=== PATIENT | female | born 1995 | race African-American/Black ===

== ENCOUNTER 2020-09-03 12:47 | Outpatient (CLI) | payer OTHER ==
[2020-09-04 02:10] LABS: SARS-CoV-2 PCR by NAA Not Detected (NotDetected)
== END 2020-09-03 12:48 | disposition home or self-care (01) ==
LOC: CSHLAB 12:47
PROVIDERS: ATTEND Family Medicine
DX: Z20.822 Contact with and (suspected) exposure to COVID-19 (principal)
CPT/HCPCS: 87635; U0003; U0005

== ENCOUNTER 2020-09-06 05:33 | Inpatient (IN) | payer OTHER ==
[~2020-09-06 05:33] MED LIST: NS w/ Oxytocin 30 units 500 ML IV PRN; NS w/ Oxytocin 30 units 500 ML IVPB SCH
[2020-09-06] MEDS ORDERED: Promethazine HCl 25 MG/ML VIAL IM PRN ×2 (05:34→08:42)
[2020-09-06] MEDS ORDERED: NS / Oxytocin 40 units/1000ml 1,000 ML IV PRN (05:34)
[2020-09-06] MEDS ORDERED: Lidocaine 1% (PF) 30 ML VIAL SC PRN (05:34)
[2020-09-06] MEDS ORDERED: Ondansetron PF 4 MG/2 ML Vial IVP PRN ×3 (05:34→14:30)
[2020-09-06] MEDS ORDERED: Ibuprofen 800 MG TAB PO PRN (05:34)
[2020-09-06] MEDS ORDERED: Diphenoxylate HCl/Atropine Tablet PO PRN (05:34)
[2020-09-06] MEDS ORDERED: Misoprostol 200 MCG TAB PR PRN (05:34)
[2020-09-06] MEDS ORDERED: Butorphanol Tartrate 1 MG/ML VIAL SLOW IVP PRN (05:34)
[2020-09-06] MEDS ORDERED: hydrALAZINE 20 MG/ML VIAL SLOW IVP PRN ×2 (05:34→14:30)
[2020-09-06] MEDS ORDERED: Carboprost 250 MCG/ML AMP IM PRN (05:34)
[2020-09-06] MEDS ORDERED: HYDROcodone/Acetaminophen 5/325 mg Tablet PO PRN ×3 (05:34→14:30)
[2020-09-06] MEDS ORDERED: Methylergonovine 0.2 MG/ML VIAL IM PRN (05:34)
[2020-09-06] MEDS ORDERED: Penicillin G Potassium 5 MILL.UNITS in Sodium Chloride 0.9% 100 ML IVPB SCH (05:45)
[2020-09-06] MEDS: Lactated Ringer's 1,000 ML IV SCH ×2 (06:18→19:30)
[2020-09-06] MEDS ORDERED: NS w/ Oxytocin 30 units 500 ML ONE ×2 (06:23→13:09)
[2020-09-06 06:49] VITALS: BMI 27.4
[2020-09-06 06:52] LABS: Mean Corpuscular HGB CONC 31.3 g/dL (32.0-36.0); Mean Corpuscular Hemoglobin 25.3 pg (27.0-33.0); Mean Platelet Volume 10.7 fl (7.4-10.4); Platelet Count 208 10x3/uL (150-450); RBC Distribution Width 15.2 % (11.5-14.5); Red Blood Cell (RBC) Count 3.95 10x6/uL (3.90-5.03); White Blood Cell (WBC) Count 7.1 10x3/uL (3.5-10.5)
[2020-09-06 07:24] LABS: Hep B Surf Ag Non-Reactive S/CO (NonReactive)
[2020-09-06 07:25] LABS: Syphilis Antibody Nonreactive (Nonreactive); Syphilis Antibody Index 0.03 S/CO (<1.00 Non-Reactive)
[2020-09-06] MEDS ORDERED: Fentanyl 4 mcg/Bup 0.1% Cadd 100 ML ONE (07:32)
[2020-09-06 07:33] LABS: HBSAg Index 0.19 S/CO (0-0.99)
[2020-09-06] MEDS ORDERED: Bupivacaine 0.25% HCL 30 ML VIAL ONE (08:00)
[2020-09-06] MEDS ORDERED: Naloxone HCl 0.4 mg/ml Vial IVP PRN ×2 (08:42)
[2020-09-06] MEDS ORDERED: diphenhydrAMINE 50 MG/ML VIAL IVP PRN (08:42)
[2020-09-06] MEDS ORDERED: Eucerin (Mineral Oil/Petrolatum,White) 30 gm Jar TOP PRN (08:42)
[2020-09-06] MEDS ORDERED: Acetaminophen 325 MG TAB PO PRN (08:42)
[2020-09-06] MEDS ORDERED: Lactated Ringer's 500 ML IV PRN (08:42)
[2020-09-06] MEDS ORDERED: Communication Order-Pharmacy FS SCH (08:45)
[2020-09-06] MEDS ORDERED: Fentanyl 4 mcg/Bupivacaine 0.1% Cassette 100 ML EPIDURAL SCH (08:45)
[2020-09-06] MEDS ORDERED: ePHEDrine Sulfate 50 MG/10 ML VIAL SLOW IVP PRN (08:49)
[2020-09-06] MEDS: Penicillin G 2.5 MILL.units 2.5 MILL.UNITS in Premix Bag 1 BAG IVPB SCH ×2 (10:33→19:30)
[2020-09-06] MEDS ORDERED: NS w/ Oxytocin 30 units 500 ML IVPB SCH ×3 (13:30→14:45)
[2020-09-06] MEDS ORDERED: Adacel (T-DAP) 0.5 ML SYRINGE IM ONE (14:30)
[2020-09-06] MEDS ORDERED: Benzocaine-Menthol 82.5 ML CAN TOP PRN (14:30)
[2020-09-06] MEDS ORDERED: Bisacodyl 10 MG SUPP PR PRN (14:30)
[2020-09-06] MEDS ORDERED: Milk Of Magnesia 30 ML UDCUP PO PRN (14:30)
[2020-09-06] MEDS ORDERED: Lanolin Ointment 7 GM TUBE TOP PRN (14:30)
[2020-09-06] MEDS ORDERED: diphenhydrAMINE 25 MG CAP PO PRN (14:30)
[2020-09-06] MEDS ORDERED: Ibuprofen 800 MG TAB PO SCH (15:00)
[2020-09-06] MEDS: Ferrous Sulfate 325 MG TAB PO SCH (19:29)
[2020-09-06] MEDS: Docusate Calcium (SURFAK) 240 MG CAP PO SCH (20:54)
[2020-09-06] MEDS: Ibuprofen 800 MG TAB PO SCH (21:00)
[2020-09-07] MEDS: Ibuprofen 800 MG TAB PO SCH ×2 (06:11→13:31)
[2020-09-07] MEDS: Docusate Calcium (SURFAK) 240 MG CAP PO SCH (07:59)
[2020-09-07] MEDS ORDERED: Prenatal Vitamin 1 TAB PO SCH (09:00)
[2020-09-07] MEDS: Ferrous Sulfate 325 MG TAB PO SCH (10:27)
[2020-09-07 11:23] VITALS: BP 115/58; TEMP 98.4
== END 2020-09-07 21:30 | disposition home or self-care (01) | DRG 807 ==
LOC: CSHLD 05:33 → CSHPED 16:56 → EDSTATUS 09-12 17:27
PROVIDERS: ADMIT Family Medicine; ATTEND Family Medicine
PROC: 10E0XZZ Delivery of Products of Conception, External Approach (ICD-10-PCS; principal; 2020-09-06)
PROC: 10907ZC Drainage of Amniotic Fluid, Therapeutic from Products of Conception, Via Natural or Artificial Opening (ICD-10-PCS; 2020-09-06)
PROC: 3E033VJ Introduction of Other Hormone into Peripheral Vein, Percutaneous Approach (ICD-10-PCS; 2020-09-06)
PROC: 0HQ9XZZ Repair Perineum Skin, External Approach (ICD-10-PCS; 2020-09-06)
DX: O99.824 Streptococcus B carrier state complicating childbirth (principal); Z20.822 Contact with and (suspected) exposure to COVID-19; O70.0 First degree perineal laceration during delivery; Z37.0 Single live birth; Z3A.39 39 weeks gestation of pregnancy
CPT/HCPCS: 51702; 85027; 86780; 86850; 86900; 86901; 87340; J2405; J2540; J2590; J3490; S0020

== ENCOUNTER 2021-10-12 12:43 | Day surgery (SDC) | payer OTHER ==
[2021-10-12] MEDS ORDERED: diphenhydrAMINE 25 MG CAP PO ONE (13:30)
[2021-10-12] MEDS ORDERED: Acetaminophen 500 MG TAB PO SCH (13:45)
[2021-10-12] MEDS ORDERED: Iron Sucrose Complex 500 MG in Sodium Chloride 0.9% 250 ML 250 ML IVPB SCH (14:15)
[2021-10-12 15:37] VITALS: BMI 22.9
== END 2021-10-12 20:30 | disposition home or self-care (01) ==
LOC: CSHLD/OP 12:43
PROVIDERS: ATTEND Obstetrics & Gynecology
DX: O99.013 Anemia complicating pregnancy, third trimester (principal); D50.9 Iron deficiency anemia, unspecified; D56.3 Thalassemia minor; O09.33 Supervision of pregnancy with insufficient antenatal care, third trimester; Z3A.35 35 weeks gestation of pregnancy; Z87.891 Personal history of nicotine dependence
CPT/HCPCS: 96365; 96366; 99283; J1756; J7050

== ENCOUNTER 2021-11-11 14:19 | Inpatient (IN) | payer OTHER ==
[~2021-11-11 14:19] MED LIST changes: +Bupivacaine/Epinephrine 0.25% 30 ML VIAL ONE; -NS w/ Oxytocin 30 units 500 ML IV PRN; -NS w/ Oxytocin 30 units 500 ML IVPB SCH; +ePHEDrine Sulfate 50 MG/10 ML VIAL ONE
[2021-11-11] MEDS ORDERED: hydrALAZINE 20 MG/ML VIAL SLOW IVP PRN ×2 (14:48→22:09)
[2021-11-11] MEDS ORDERED: Ondansetron ODT 4 MG TAB PO PRN (15:25)
[2021-11-11] MEDS ORDERED: Sodium Chloride 0.9% 1,000 ML IV SCH (18:30)
[2021-11-11 22:09] VITALS: BMI 23.8
[2021-11-11] MEDS ORDERED: Ondansetron PF 4 MG/2 ML Vial IVP PRN (22:09)
[2021-11-11] MEDS ORDERED: Misoprostol 200 MCG TAB PR PRN (22:09)
[2021-11-11] MEDS ORDERED: Acetaminophen 500 MG TAB PO PRN (22:09)
[2021-11-11] MEDS ORDERED: Carboprost 250 MCG/ML AMP IM PRN (22:09)
[2021-11-11] MEDS ORDERED: Ibuprofen 800 MG TAB PO PRN (22:09)
[2021-11-11] MEDS ORDERED: Promethazine HCl 25 MG/ML VIAL IM PRN (22:09)
[2021-11-11] MEDS ORDERED: Lidocaine 1% (PF) 30 ML VIAL SC PRN (22:09)
[2021-11-11] MEDS ORDERED: Methylergonovine 0.2 MG/ML VIAL IM PRN (22:09)
[2021-11-11 22:37] LABS: Mean Corpuscular HGB CONC 30.7 g/dL (32.0-36.0); Mean Corpuscular Hemoglobin 25.4 pg (27.0-33.0); Mean Corpuscular Volume 82.7 fl (81.6-98.3); Mean Platelet Volume 10.6 fl (7.4-10.4); Platelet Count 213 10x3/uL (150-450); RBC Distribution Width 17.2 % (11.5-14.5); Red Blood Cell (RBC) Count 3.94 10x6/uL (3.90-5.03); White Blood Cell (WBC) Count 10.8 10x3/uL (3.5-10.5)
[2021-11-11] MEDS ORDERED: NS w/ Oxytocin 30 units 500 ML IV SCH ×2 (23:00→23:59)
[2021-11-11 23:22] LABS: Hep B Surf Ag Non-Reactive S/CO (NonReactive); Syphilis Antibody Nonreactive (Nonreactive); Syphilis Antibody Index 0.06 S/CO (<1.00 Non-Reactive)
[2021-11-11 23:41] LABS: HBSAg Index 0.15 S/CO (0-0.99)
[2021-11-12] MEDS ORDERED: Fentanyl 2 mcg/Bup 0.1% Cadd 100 ML ONE (03:26)
[2021-11-12] MEDS ORDERED: Promethazine HCl 25 MG/ML VIAL IM PRN (04:28)
[2021-11-12] MEDS ORDERED: Moisturizing Cream (Eucerin) 113 GM JAR TOP PRN (04:28)
[2021-11-12] MEDS ORDERED: diphenhydrAMINE 50 MG/ML VIAL IVP PRN (04:28)
[2021-11-12] MEDS ORDERED: Lactated Ringer's 500 ML IV PRN (04:28)
[2021-11-12] MEDS ORDERED: Ondansetron PF 4 MG/2 ML Vial IVP PRN ×2 (04:28→07:37)
[2021-11-12] MEDS ORDERED: ePHEDrine Sulfate 50 MG/10 ML VIAL SLOW IVP PRN (04:28)
[2021-11-12] MEDS ORDERED: Naloxone HCl 0.4 mg/ml Vial IVP PRN ×2 (04:28)
[2021-11-12] MEDS ORDERED: Acetaminophen 325 MG TAB PO PRN (04:28)
[2021-11-12] MEDS ORDERED: Communication Order-Pharmacy FS SCH (04:30)
[2021-11-12] MEDS ORDERED: Fentanyl 2 mcg/Bupivacaine 0.1% Cassette 100 ML EPIDURAL SCH (04:30)
[2021-11-12 05:54] LABS: SARS-CoV-2 NAA Rapid Test Not Detected (NotDetected)
[2021-11-12] MEDS ORDERED: Penicillin G Potassium 5 MILL.UNITS in Sodium Chloride 0.9% 100 ML IVPB SCH (07:00)
[2021-11-12] MEDS ORDERED: Boostrix 0.5 ML (Tdap) VIAL IM ONE (07:37)
[2021-11-12] MEDS ORDERED: Preparation H Ointment 28 GM TUBE PR PRN (07:37)
[2021-11-12] MEDS ORDERED: Lanolin Ointment 7 GM TUBE TOP PRN (07:37)
[2021-11-12] MEDS ORDERED: hydrALAZINE 20 MG/ML VIAL SLOW IVP PRN (07:37)
[2021-11-12] MEDS ORDERED: Milk Of Magnesia 30 ML UDCUP PO PRN (07:37)
[2021-11-12] MEDS ORDERED: Bisacodyl 10 MG SUPP PR PRN (07:37)
[2021-11-12] MEDS ORDERED: diphenhydrAMINE 25 MG CAP PO PRN (07:37)
[2021-11-12] MEDS ORDERED: Benzocaine-Menthol 82.5 ML CAN TOP PRN (07:37)
[2021-11-12] MEDS: Ferrous Sulfate 325 MG TAB PO SCH (10:26)
[2021-11-12] MEDS: Docusate 100 MG CAP PO SCH ×2 (10:26→21:28)
[2021-11-12] MEDS: Prenatal Vitamin 1 TAB PO SCH (10:26)
[2021-11-12] MEDS ORDERED: Penicillin G 2.5 MILL.units 2.5 MILL.UNITS in Premix Bag 1 BAG IVPB SCH (11:00)
[2021-11-12] MEDS: Ibuprofen 800 MG TAB PO SCH ×2 (14:13→21:28)
[2021-11-13] MEDS: Ibuprofen 800 MG TAB PO SCH ×3 (05:38→21:09)
[2021-11-13] MEDS: Docusate 100 MG CAP PO SCH ×2 (09:28→21:09)
[2021-11-13] MEDS: Prenatal Vitamin 1 TAB PO SCH (09:28)
[2021-11-13] MEDS: Ferrous Sulfate 325 MG TAB PO SCH (10:02)
[2021-11-14] MEDS: Ibuprofen 800 MG TAB PO SCH ×2 (05:09→14:09)
[2021-11-14 07:53] VITALS: BP 109/61; TEMP 98.7
[2021-11-14] MEDS: Ferrous Sulfate 325 MG TAB PO SCH (08:39)
[2021-11-14] MEDS: Docusate 100 MG CAP PO SCH (08:39)
[2021-11-14] MEDS: Prenatal Vitamin 1 TAB PO SCH (08:39)
== END 2021-11-14 15:35 | disposition home or self-care (01) | DRG 806 ==
LOC: CSHLD/OP 14:19 → CSHLD 22:24 → CSHPP 11-12 09:53
PROVIDERS: ADMIT Emergency Medicine; ATTEND Emergency Medicine
PROC: 10D07Z6 Extraction of Products of Conception, Vacuum, Via Natural or Artificial Opening (ICD-10-PCS; principal; 2021-11-12)
PROC: 10907ZC Drainage of Amniotic Fluid, Therapeutic from Products of Conception, Via Natural or Artificial Opening (ICD-10-PCS; 2021-11-12)
DX: O99.02 Anemia complicating childbirth (principal); O99.413 Diseases of the circulatory system complicating pregnancy, third trimester; Z37.0 Single live birth; D64.9 Anemia, unspecified; Z20.822 Contact with and (suspected) exposure to COVID-19; Z3A.39 39 weeks gestation of pregnancy; D56.3 Thalassemia minor; Z28.310 Unvaccinated for COVID-19; Z87.891 Personal history of nicotine dependence; Z79.899 Other long term (current) drug therapy; E86.0 Dehydration; O99.284 Endocrine, nutritional and metabolic diseases complicating childbirth; O76 Abnormality in fetal heart rate and rhythm complicating labor and delivery; O69.81X0 Labor and delivery complicated by cord around neck, without compression, not applicable or unspecified; I95.9 Hypotension, unspecified
CPT/HCPCS: 51702; 76819; 85027; 86780; 86850; 86900; 86901; 87340; 88307; 99285; J2590; U0002

== ENCOUNTER 2023-02-07 17:11 | Emergency (ER) | payer OTHER, SELFPAY ==
[2023-02-07] MEDS ORDERED: Ondansetron PF 4 MG/2 ML Vial ONE (18:13)
[2023-02-07] MEDS ORDERED: Ketorolac Tromethamine 30 MG/ML VIAL ONE (18:13)
[2023-02-07] MEDS ORDERED: Dexamethasone 4 mg/ml Vial ONE (18:13)
[2023-02-07] MEDS ORDERED: cefTRIAXone (ROCEPHIN) 1 GM VIAL ONE (18:14)
== END 2023-02-07 19:25 | disposition home or self-care (01) ==
LOC: CSHERS 17:11
DX: J36 Peritonsillar abscess (principal)
CPT/HCPCS: 87081; 87430; 96374; 96375; J0696; J1100; J1885; J2405

== ENCOUNTER 2023-08-01 14:36 | Emergency (ER) | payer OTHER ==
[2023-08-01 15:44] LABS: Influenza A by NAA Not Detected (NotDetected); Influenza B by NAA Not Detected (NotDetected); SARS-CoV-2 NAA Rapid Test Not Detected (NotDetected)
[2023-08-01 16:10] LABS: BHCG - Serum Negative (NEGATIVE); Pregs Control Background? CLEAR/WHITE (CLR/WHITE); Pregs Control Bar Appear? YES (CONTROL BAR)
[2023-08-01 16:16] LABS: ALT (SGPT) 24 U/L (8-55); AST (SGOT) 22 U/L (5-34); Albumin 4.4 g/dL (3.5-5.0); Alkaline Phosphatase 54 U/L (40-110); Anion Gap 12 mmol/L (10-20); BUN (Urea Nitrogen) 7 mg/dL (7.0-18.7); Bilirubin, Total 0.4 mg/dL (0.2-1.2); Calc. Creatinine Clearance 0 mL/min (70-130); Calcium 9.7 mg/dL (7.8-10.44); Carbon Dioxide 20 mmol/L (22-29); Chloride 108 mmol/L (98-107); Estimated GFR 116; Globulin 3.7 g/dL (2.4-3.5); Glucose 87 mg/dL (70-105); Potassium 4.1 mmol/L (3.5-5.1); Protein, Total 8.1 g/dL (6.0-8.3); Sodium 136 mmol/L (136-145)
[2023-08-01 16:18] LABS: #Eosinphils 0.3 10x3/uL (0.0-0.5); #Monocytes 0.6 10x3/uL (0.0-1.1); #Neutrophils 6.6 10x3/uL (1.5-8.4); %Basophils 0.5 % (0.0-2.0); %Eosinophils 3.9 % (0.0-6.0); %Lymphocytes 12.3 % (18.0-47.0); %Monocytes 6.7 % (0.0-10.0); %Neutrophils 76.5 % (40.0-75.0); Mean Corpuscular HGB CONC 31.6 g/dL (32.0-36.0); Mean Corpuscular Hemoglobin 25.4 pg (27.0-33.0); Mean Corpuscular Volume 80.3 fl (81.6-98.3); Mean Platelet Volume 11.2 fl (7.4-10.4); Platelet Count 236 10x3/uL (150-450); RBC Distribution Width 14.9 % (11.5-14.5); Red Blood Cell (RBC) Count 4.73 10x6/uL (3.90-5.03); White Blood Cell (WBC) Count 8.6 10x3/uL (3.5-10.5)
[2023-08-01 16:39] LABS: Bilirubin Neg (Negative); Blood, Urine 250 (Negative); Clarity Clear (Clear); Glucose, Urine (Dipstick) 100 mg/dL (Negative); Ketone, Urine Negative (Negative); Leukocyte 100 (Negative); Nitrite Negative (Negative); Protein, Urine (Dipstick) 100 mg/dl (Neg-Trace); Urobilinogen Normal mg/dL (Less than 2)
[2023-08-01 16:55] LABS: Bacteria/HPF 1+ HPF (None Seen); CAUTI Indications for Culture Dysuria,urgency,freq; Calcium Oxalate Crystals 1+ HPF (None Seen); Squamous Epithelial 0-3 HPF (0-3)
[2023-08-01 16:56] LABS: Urine Culture Reflex No No
== END 2023-08-01 17:03 | disposition home or self-care (01) ==
LOC: CSHERS 14:36
DX: R55 Syncope and collapse (principal); B34.9 Viral infection, unspecified; N39.0 Urinary tract infection, site not specified; F17.200 Nicotine dependence, unspecified, uncomplicated
CPT/HCPCS: 71045; 80053; 81001; 84703; 85025; 85379; 93005; 96360

== ENCOUNTER 2024-03-01 12:40 | Emergency (ER) | payer OTHER, SELFPAY ==
[2024-03-01] MEDS ORDERED: Lidocaine 1% w/Epinephrine 1:200K 30 ML VIAL ONE (14:12)
== END 2024-03-01 15:52 | disposition home or self-care (01) ==
LOC: CSHERS 12:40
DX: L02.411 Cutaneous abscess of right axilla (principal); F17.200 Nicotine dependence, unspecified, uncomplicated
CPT/HCPCS: 10060; 87070; 87077; 87205

== ENCOUNTER 2025-01-30 11:32 | Emergency (ER) | payer SELFPAY ==
[2025-01-30] MEDS ORDERED: Proparacaine 0.5% Opth 15 ML BOT ONE (12:07)
[2025-01-30] MEDS ORDERED: Fluorescein Opthalmic Strip ONE (12:07)
== END 2025-01-30 15:11 | disposition home or self-care (01) ==
LOC: CSHERS 11:32
DX: N60.02 Solitary cyst of left breast (principal); H10.9 Unspecified conjunctivitis; B96.89 Other specified bacterial agents as the cause of diseases classified elsewhere

== ENCOUNTER 2025-03-07 08:06 | Emergency (ER) | payer OTHER, SELFPAY ==
[2025-03-07] MEDS ORDERED: Ketorolac Tromethamine 30 MG (1 mL) VIAL ONE (08:52)
[2025-03-07 09:11] LABS: #Basophils 0.03 10x3/uL (0.0-0.2); #Eosinophils 0.17 10x3/uL (0.0-0.5); #Monocytes 0.51 10x3/uL (0.0-1.1); #Neutrophils 5.56 10x3/uL (1.5-8.4); %Basophils 0.4 % (0.0-2.0); %Eosinophils 2.2 % (0.0-6.0); %Lymphocytes 16.8 % (18.0-47.0); %Monocytes 6.7 % (0.0-10.0); %Neutrophils 73.6 % (40.0-75.0); Hematocrit 34.0 % (34.9-44.5); Hemoglobin 10.5 g/dL (12.0-15.5); Mean Corpuscular Hemoglobin 24.2 pg (27.0-33.0); Mean Corpuscular Volume 78.3 fL (81.6-98.3); Platelet Count 328 10x3/uL (150-450); Red Blood Cell (RBC) Count 4.34 10x6/uL (3.90-5.03); White Blood Cell (WBC) Count 7.56 10x3/uL (3.5-10.5)
[2025-03-07 09:25] LABS: INR-International Normal Ratio 0.9; PTT 27.6 sec (22.0-33.0); Prothrombin Time 10.1 sec (9.5-12.1)
[2025-03-07 09:29] LABS: ALT (SGPT) 26 U/L (Less than 34); AST (SGOT) 34 U/L (11-34); Albumin 3.7 g/dL (3.1-4.5); Alkaline Phosphatase 42 U/L (40-110); Anion Gap 9 mmol/L (10-20); BUN (Urea Nitrogen) 9 mg/dL (7.0-18.7); Bilirubin, Total 0.3 mg/dL (0.3-1.2); Calc. Creatinine Clearance 0 mL/min (70-130); Calcium 10.4 mg/dL (7.8-10.44); Carbon Dioxide 25 mmol/L (22-29); Chloride 106 mmol/L (98-107); Globulin 3.8 g/dL (2.4-3.5); Glucose 99 mg/dL (70-105); Potassium 3.9 mmol/L (3.5-5.1); Sodium 136 mmol/L (136-145)
[2025-03-07] MEDS ORDERED: Lidocaine 1% w/Epinephrine 1:200K 30 ML VIAL ONE (09:37)
[2025-03-07] MEDS ORDERED: Iopamidol 370 76% 100 ML VIAL ONE (10:37)
== END 2025-03-07 13:04 | disposition home or self-care (01) ==
LOC: CSHERS 08:06
DX: C50.919 Malignant neoplasm of unspecified site of unspecified female breast (principal); N63.21 Unspecified lump in the left breast, upper outer quadrant
CPT/HCPCS: 10160; 36415; 71260; 74177; 80053; 83605; 85025; 85610; 85730; 87040; 88112; 88305; 88341; 88342; 96374; J1885; Q9967

== ENCOUNTER 2025-03-21 07:28 | Day surgery (SDC) | payer SELFPAY ==
[2025-03-17 14:12] VITALS: BMI 27.3
[2025-03-21] MEDS ORDERED: Bupivacaine/Epinephrine 0.25% 30 ML VIAL ONE (10:25)
[2025-03-21] MEDS ORDERED: Bupivacaine HCl 0.5%/Epinephrine 1:200,000/PF 30 ml Vial ONE (10:27)
[2025-03-21] MEDS ORDERED: PROPOFOL 20 ML ONE (11:21)
[2025-03-21] MEDS ORDERED: Lidocaine 1% PF 5 ML VIAL ONE (11:22)
[2025-03-21] MEDS ORDERED: CEFAZOLIN 2 GM VIAL ONE (11:26)
[2025-03-21] MEDS ORDERED: PHENYLEPHRINE-NS 100 MCG/ML 10 ML SYRINGE ONE (11:43)
[2025-03-21] MEDS ORDERED: Ondansetron PF 4 MG/2 ML Vial ONE (12:00)
[2025-03-21] MEDS ORDERED: HYDROcodone/Acetaminophen 5/325 mg Tablet ONE (13:29)
== END 2025-03-21 15:45 | disposition home or self-care (01) ==
LOC: CSHSDC 07:28
PROVIDERS: ATTEND Surgery
DX: C50.912 Malignant neoplasm of unspecified site of left female breast (principal)
CPT/HCPCS: 71045; 88305; 88342; C1788; J1100; J1642; J2405; J2704; J3010

== ENCOUNTER 2025-03-30 14:55 | Outpatient (CLI) | payer OTHER, SELFPAY | END 2025-03-30 14:56 | disposition home or self-care (01) | LOC: CSHEKG 14:55 | PROVIDERS: ATTEND Internal Medicine | DX: C50.412 Malignant neoplasm of upper-outer quadrant of left female breast (principal) | CPT/HCPCS: 93306 ==